=== PATIENT | female | born 1975 | race Caucasian/White ===

== ENCOUNTER → 2023-11-27 09:52 | Outpatient (REF) | payer OTHER, SELFPAY | LOC: WDC 09:52 | PROVIDERS: ATTENDING PHYSICIAN Surgery | DX: N63.31 Unspecified lump in axillary tail of the right breast (principal); R22.31 Localized swelling, mass and lump, right upper limb | CPT/HCPCS: 76642; 77062; 77066 ==

== ENCOUNTER → 2024-09-24 08:52 | Outpatient (REF) | payer OTHER, SELFPAY | LOC: RAD 08:52 | PROVIDERS: ATTENDING PHYSICIAN Obstetrics & Gynecology | DX: R10.2 Pelvic and perineal pain (principal) | CPT/HCPCS: 76830; 76856 ==

== ENCOUNTER → 2024-12-01 13:21 | Outpatient (REF) | payer OTHER, SELFPAY | LOC: WDC 13:21 | PROVIDERS: ATTENDING PHYSICIAN Obstetrics & Gynecology | DX: Z12.31 Encounter for screening mammogram for malignant neoplasm of breast (principal) | CPT/HCPCS: 77063; 77067 ==

== ENCOUNTER 2025-03-12 13:33 | Emergency (ER) | payer OTHER, SELFPAY ==
[2025-03-12 13:37] VITALS: BP 151/92
--- NOTE | 2025-03-12 14:49 | ED.GENMED ---
History of Present Illness
General
Chief Complaint: DVT/Possible Blood Clot
Time Seen by Provider: 03/12/25 14:48
History of Present Illness
History of Present Illness:
TIME OF INITIAL EVALUATION
- 2:50 PM
REVIEW OF OLD RECORDS
- The patient has history of a right axillary mass manage by Dr. Red in 2019.
Note:
CHIEF COMPLAINT(S)
Leg swelling and paresthesia.
HISTORY OF PRESENT ILLNESS
The patient is a 50-year-old female who presented with swelling primarily located around the ankle area. She denied any pain or difficulty breathing. She has been driving more frequently recently up to [place]. The patient has experienced
intermittent paresthesia described as a 'pins and needles' sensation associated with the swelling. She reported no history of blood clots. The swelling in this case is not accompanied by obvious signs of infection. The possibility of venous
insufficiency was discussed, but this is less common in a patient of her age.
PHYSICAL EXAM
General: Alert, no acute distress.
Skin: Warm, dry.
Head: Normocephalic, atraumatic.
Neck: Supple, trachea midline.
Back: Normal range of motion, Normal alignment.
Musculoskeletal: Normal range of motion, normal strength, trace edema noted at the right ankle, good fusion noted to the feet bilaterally
Neurological: Alert and oriented to person, place, time, and situation, No focal neurological deficit observed.
Psychiatric: Cooperative, appropriate mood and affect.
PLAN
Await results of the ultrasound imaging to further evaluate the cause of the leg swelling and assess for potential venous issues.
DIFFERENTIAL DIAGNOSIS
The Differential Diagnosis includes, in no particular order and is not limited to:
1. Venous insufficiency
2. Deep vein thrombosis
3. Lymphedema
4. Cellulitis
5. Peripheral neuropathy
6. Chronic venous hypertension
7. Congestive heart failure
8. Hypothyroidism
9. Nephrotic syndrome
10. Medication-induced swelling (e.g., from calcium channel blockers)
RADIOLOGY
- Ultrasound imaging obtained�no DVT
UPDATE
-SUMMARY OF ENCOUNTER
The patient, a 50-year-old female, presented to the emergency department with leg swelling and associated intermittent paresthesia. Ultrasound imaging was performed and independently reviewed by the radiologist; no evidence of a blood clot or other
concerning findings were noted. The patient reported a recent increase in driving activities, which was discussed as a possible contributing factor to her symptoms. Considering the ultrasound results and lack of signs of infection, venous
insufficiency or mechanical factors from prolonged sitting was considered a potential cause of swelling. The patient was advised to keep her leg elevated as much as possible and consider using compression stockings to manage the symptoms.
PLAN
Continue home care with leg elevation and consider the use of compression stockings to alleviate swelling. There was no indication for diuretics like furosemide (LASIX) at this time.
INDEPENDENT REVIEW OF LABS AND INTERPRETATION OF TESTS
My independent interpretation of the ultrasound was that there were no indications of a blood clot or other concerning abnormalities.
PATIENT EDUCATION AND COUNSELING
The patient was counseled on the importance of leg elevation and the use of compression stockings. The relationship between prolonged periods of sitting or driving and leg swelling was discussed.
FOLLOW-UP INSTRUCTIONS
Please call the office immediately to schedule a follow-up visit if symptoms do not improve or worsen.
MEDICAL DECISION MAKING
-Complexity of Data Reviewed: Chronic conditions affecting care. Differential diagnosis considerations included venous insufficiency, deep vein thrombosis, lymphedema, cellulitis, and other conditions related to leg swelling.
-Data:
Category 1
My independent interpretation of the ultrasound indicated no blood clots, aligning with the radiologists report.
-Risk:
Consideration of Admission/Observation: Escalation of care including admission/observation was considered given the complexity and risk of the patients presenting complaint and examination findings. However, ultimately I feel the patient is safe for
outpatient management with close follow-up. Reasoning: Work-up reassuring, does not reveal any acute life/organ threatening processes, patients symptoms well-controlled upon reevaluation, reexamination is reassuring, vitals are stable, patient
agreeable with discharge, reliable for follow-up.
DIAGNOSIS
Other superficial edema, ICD-10 code R60.0
Phy Exam
Physical Exam
Physical Exam:
See HPI
Course
Orders/Labs/Results
Orders:
Orders
03/12/25 13:43
US Legs, Right [US Periph Venous LOWER Ext RT] Urgent
Comment:
Reason For Exam: right leg swelling
Vital Signs
Initial and Last Documented VS:
Initial Vital Signs
Temp Pulse Resp BP Pulse Ox
36.7 C 85 20 151/92 99
03/12/25 13:37 03/12/25 13:37 03/12/25 13:37 03/12/25 13:37 03/12/25 13:37
Last Documented Vital Signs
Temp Pulse Resp BP Pulse Ox
36.7 C 85 20 151/92 99
03/12/25 13:37 03/12/25 13:37 03/12/25 13:37 03/12/25 13:37 03/12/25 14:49
*Pulse Oximetry
SaO2: 99
Oxygen Mode of Delivery: Room air
Patient hypoxic: no
*Critical Care Note
Total Time (30-74mins, 75-104mins- exclusive of procedures): Not Applicable
ED Attending Note
-
Portions of this chart may have been created with voice recognition software.� Occasional wrong word or��sound alike� substitutions may have occurred due to the inherent limitations of voice recognition software.
Discharge Plan
Departure
Patient Disposition: Home (Routine Discharge)
Date of Disposition: 03/12/25
Time of Disposition: 15:52
Patient with high blood pressure during this ER visit?: Yes
Discharge Problem:
Localized swelling of lower extremity
Instructions: Swelling, BLOOD PRESSURE
Prescriptions:
No Action
Lorazepam 0.5 MG Tablet
0.5 mg PO DIRECTED PRN (Reason: anxiety)
Referrals:
NONE,* [Family Provider, Internal Medicine]
Activity Restrictions/Additional Instructions:
Consider using compression stocking intermittently. Try to keep the leg elevated is much as possible. There is no sign of blood clot or any other abnormality noted on ultrasound imaging.
Interventions
Interventions:
*Risk Screen - Suicide Last Done: 03/12/25 15:51
*General Assessment Last Done: 03/12/25 13:37
*Neglect/Abuse Screening Last Done: 03/12/25 15:51
*ED- Fall Risk Assessment Last Done: 03/12/25 14:34
*ED COVID-19 Vaccine History Last Done: 03/12/25 14:34
*Nursing Disposition Last Done: 03/12/25 15:58
ED- Cardiac Assessment Last Done: 03/12/25 15:51
ED- Pulmonary Assessment Last Done: 03/12/25 15:51
ED-Peripheral Vascular Assessment Last Done: 03/12/25 15:52
ED-Skin Assessment Last Done: 03/12/25 15:51
Discharge Date and Time
Discharge Date/Time: 03/12/25 15:57
Print Language: MALTESE
== END 2025-03-12 15:57 | disposition home or self-care (01) ==
LOC: EMR 13:33
PROVIDERS: EMERGENCY PHYSICIAN Emergency Medicine
DX: R22.41 Localized swelling, mass and lump, right lower limb (principal); R20.2 Paresthesia of skin
CPT/HCPCS: 99284; 93971

== ENCOUNTER 2025-05-18 06:20 | Outpatient (RCR) | payer OTHER, SELFPAY | END 2025-05-18 23:59 | disposition home or self-care (01) | LOC: RPT 06:20 | PROVIDERS: ATTENDING PHYSICIAN Nurse Practitioner; FAMILY PHYSICIAN Physician Assistant | DX: I89.0 Lymphedema, not elsewhere classified (principal); D44.7 Neoplasm of uncertain behavior of aortic body and other paraganglia; L90.5 Scar conditions and fibrosis of skin | CPT/HCPCS: 97140; 97163; 97530 ==

== ENCOUNTER 2025-06-16 07:24 | Outpatient (RCR) | payer OTHER, SELFPAY | END 2025-06-16 23:59 | disposition home or self-care (01) | LOC: RPT 07:24 | PROVIDERS: ATTENDING PHYSICIAN Nurse Practitioner; FAMILY PHYSICIAN Physician Assistant | DX: I89.0 Lymphedema, not elsewhere classified (principal); D44.7 Neoplasm of uncertain behavior of aortic body and other paraganglia; L90.5 Scar conditions and fibrosis of skin | CPT/HCPCS: 97140; 97530 ==

== ENCOUNTER 2025-07-21 07:00 | Outpatient (RCR) | payer OTHER, SELFPAY | END 2025-07-21 12:53 | disposition home or self-care (01) | LOC: RPT 07:00 | PROVIDERS: ATTENDING PHYSICIAN Nurse Practitioner; FAMILY PHYSICIAN Physician Assistant | DX: I89.0 Lymphedema, not elsewhere classified (principal); D44.7 Neoplasm of uncertain behavior of aortic body and other paraganglia; L90.5 Scar conditions and fibrosis of skin | CPT/HCPCS: 97140; 97530 ==